=== PATIENT | male | born 1985 | race Hispanic/Latino ===

== ENCOUNTER 2021-04-21 12:32 | Emergency (ER) | payer SELFPAY ==
--- NOTE | 2021-04-21 12:39 | ED.EYEPROB ---
HPI - Eye Problem General Chief complaint: Eye Problems Stated complaint: Eye Pain Source: patient and RN notes reviewed Mode of arrival: ambulatory Limitations: no limitations History of Present Illness HPI Narrative: 35 yo male presents to the [facility] with C/O eye pain and redness with discharge for 4 days. Patient states itching and some redness started 4 days ago and has progressively worse. Patient has light sensitivity with some discharge. Reported having eyes crusted shut. Denies any injury or vision changes. Denies any foreign bodies. Offered patient him specialists Via Phone , wanted family member to translate Patient's vision 20/20 right, left and bilateral chief complaint: eye pain, eye redness and eye injury Onset (ago): day(s) (For) Location: both eyes Related Data Allergies Allergy/AdvReac Type Severity Reaction Status Date / Time No Known Allergies Allergy Verified 04/21/21 12:57 Review of Systems Review of Systems: All systems reviewed & are unremarkable except as noted in HPI and below Constitutional: Constitutional: Reports no additional constitutional complaints, Denies chills and Denies fever(s) Eyes: Eyes: Reports as per HPI, Denies blurry vision, Denies change in vision, Denies diplopia, Reports eye discharge, Reports irritation, Reports itchy eyes, Denies loss of peripheral vision, Denies loss of vision, Reports photophobia and Denies spots in vision ENT: Reports system reviewed and no additional complaints, except as documented Cardiovascular: Cardiovascular: Reports no additional cardiovascular complaints Respiratory: Respiratory: Reports no additional respiratory complaints Gastrointestinal: Gastrointestinal: Reports no additional gastrointestinal complaints Musculoskeletal: Musculoskeletal: Reports no additional musculoskeletal complaints Integumentary/Breasts: Skin/Breast: Reports system reviewed and no additional complaints, except as docu Neurologic: Reports system reviewed and no additional complaints, except as documented Psychiatric: Psychiatric: Reports no additional psychiatric complaints Allergic/Immunologic: Allergic/Immunologic: Reports no additional allergic/immunologic complaints PMFSH Comments Patient denies any medical or surgical history. At the time of my signature, I reviewed and agree with the nursing past medical, surgical, social, and family history. There is no relevant family history pertinent to the patient complaint. Exam Const: General: no acute distress and alert Nutritional Appearance: well nourished Orientation/consciousness: patient oriented x3 Limitations: language barrier (Family member here with patient, patient declined him specialists via phone.) HENMT: Head: normal to inspection Eyes: Conjunctivae: conjunctival abnormality bilateral conjunctival injection, discharge and subconjunctival hemorrhage Pupils: Equal, round and reactive pupils present Direct Ophthalmoscopy: photophobia Other: No hyphema. No injury to the eye. No foreign bodies noted under eyelids. Neck: Neck: normal visual inspection and no lymphadenopathy Chest: Chest palpation & inspection: normal inspection of the chest Resp: Effort & Inspection: normal respiratory effort Auscultation: clear to auscultation bilaterally Cardio: Rate: regular rate Rhythm: regular rhythm Back/Spine/Pelvis: Back: no CVA tenderness Skin: General skin exam: normal color Rashes: no rashes Neuro: General: patient oriented x3, moves all extremities, no meningeal signs and no focal motor deficits Speech: normal speech Gait exam (Neuro): Normal gait present Extrem: General: normal to inspection Psych: Appearance: grossly normal and well kempt Mental Status: mental status grossly normal Affect: normal affect Attitude: cooperative Thought content: Yes Normal thought content present Course Course Emergency Course: Discharge instructions reviewed with patient, as well as provided in writing per n
[2021-04-21 12:43] VITALS: BP 153/98; PULSE 81; RESP 18; TEMP 37.1; O2SAT 100
== END 2021-04-21 13:01 | disposition home or self-care (01) ==
PROVIDERS: Emergency Provider Nurse Practitioner
DX: H10.9 Unspecified conjunctivitis (principal)
CPT/HCPCS: 99203; G0463